=== PATIENT | female | born 1960 | race Caucasian/White ===

== ENCOUNTER 2019-10-07 09:35 | Emergency (ER) | payer SELFPAY ==
[2019-10-07] MEDS ORDERED: Sodium Chloride 0.9% 10 ML Syringe FLUSH PRN ×2 (09:52→10:03)
[2019-10-07] MEDS ORDERED: Ondansetron 4 MG/2 ML SDV IVPUSH ONE (09:52)
[2019-10-07] MEDS ORDERED: HYDROmorphone 1 MG/ML Syringe IVPUSH ONE (09:53)
[2019-10-07] MEDS ORDERED: Sodium Chloride 0.9% 1,000 ML IV SCH (10:00)
[2019-10-07] MEDS ORDERED: Iopamidol 612 MG/ML 100 ML Bottle IVPUSH ONE (10:03)
[2019-10-07] MEDS ORDERED: Diatrizoate Meglumine/Diatrizoate Sodium 37% 120 ML Bottle PO ONE (10:03)
[2019-10-07] MEDS ORDERED: Sodium Chloride 0.9% 1,000 ML IV ONE ×2 (10:25→11:35)
--- NOTE | 2019-10-07 10:35 | EDM.PDOC ---
ED HPI GENERAL MEDICAL PROBLEM - General Chief Complaint: Abdominal Pain Stated Complaint: [facility] Time Seen by Provider: 10/07/19 09:42 Source of Information: Reports: Patient History Limitations: Reports: No Limitations - History of Present Illness INITIAL COMMENTS - FREE TEXT/NARRATIVE: The patient presents by [facility] for abdominal pain, nausea or vomiting. This all started about a weeks ago and she has been getting worse. She had a bowel movement yesterday. She has a distended abdomen. She still has a gallbladder and appendix. She denies fever, chills, cough, congestion, runny nose, or chest pain. She does have some shortness of breath. She has no medical problems. She has not been able to keep anything down. The patient says she only drinks some times and not that much. She has no history of problems with her liver. EMS did a blood sugar and it was high around 280. Onset: Gradual Duration: Week(s): Location: Reports: Abdomen Quality: Reports: Sharp Severity: Moderate Improves with: Reports: None Worsens with: Reports: None Associated Symptoms: Reports: Nausea/Vomiting, Shortness of Breath. Denies: Chest Pain, Cough, Fever/Chills, Headaches Abdomen Pain Score (Numeric/FACES): 7 - Related Data Allergies Allergy/AdvReac Type Severity Reaction Status Date / Time No Known Allergies Allergy Verified 10/07/19 09:46 Home Meds: Home Meds . [No Known Home Meds] 10/07/19 [History] Past Medical History HEENT History: Reports: Impaired Vision Other HEENT History: wears glasses Social & Family History - Tobacco Use Smoking Status *Q: Former Smoker Used Tobacco, but Quit: Yes Month/Year Tobacco Last Used: 09/27/19 Tobacco Use Comment: quit since not feeling well - Caffeine Use Caffeine Use: Reports: None - Recreational Drug Use Recreational Drug Use: No ED ROS GENERAL - Review of Systems Review Of Systems: See Below Constitutional: Reports: No Symptoms HEENT: Reports: No Symptoms Respiratory: Reports: Shortness of Breath Cardiovascular: Reports: No Symptoms Endocrine: Reports: No Symptoms GI/Abdominal: Reports: Abdominal Pain, Nausea, Vomiting. Denies: Diarrhea : Reports: No Symptoms Musculoskeletal: Reports: No Symptoms ED EXAM, GI/ABD - Physical Exam Exam: See Below Exam Limited By: No Limitations General Appearance: Alert, No Apparent Distress Ears: Normal External Exam Nose: Normal Inspection Head: Atraumatic, Normocephalic Neck: Normal Inspection Respiratory/Chest: No Respiratory Distress, Lungs Clear, Normal Breath Sounds Cardiovascular: Regular Rate, Rhythm, No Edema, No Murmur GI/Abdominal Exam: Distended, Tender (Moderate generalized tenderness) Back Exam: Normal Inspection Course - Vital Signs Last Recorded V/S: Last Vital Signs Temp 96.9 F 10/07/19 09:37 Pulse 76 10/07/19 09:37 Resp 18 10/07/19 09:37 BP 129/76 10/07/19 09:37 Pulse Ox 98 10/07/19 09:37 - Orders/Labs/Meds Orders: Active Orders 24 hr Category Date Time Status EKG Documentation Completion [RC] ASDIRECTED Care 10/07/19 10:45 Active Peripheral IV Care [RC] . DIRECTED Care 10/07/19 09:52 Active RT Aerosol Therapy [RC] ASDIRECTED Care 10/07/19 10:48 Active CULTURE BLOOD [BC] Stat Lab 10/07/19 11:00 Received CULTURE BLOOD [BC] Stat Lab 10/07/19 11:15 Received LACTIC ACID [CHEM] Stat Lab 10/07/19 11:00 Received TROPONIN I [CHEM] Stat Lab 10/07/19 10:59 Ordered UA W/MICROSCOPIC [URIN] Stat Lab 10/07/19 09:52 Ordered Piperacillin/Tazobactam [Piperacil-Tazobact] 4.5 gm Med 10/07/19 11:27 Active Sodium Chloride 0.9% [Normal Saline] 100 ml IV ONETIME Sodium Chloride 0.9% [Normal Saline] 1,000 ml Med 10/07/19 10:00 Active IV ASDIRECTED Sodium Chloride 0.9% [Normal Saline] 1,000 ml Med 10/07/19 11:35 Active IV ONETIME Sodium Chloride 0.9% [Saline Flush] Med 10/07/19 09:52 Active 10 ml FLUSH ASDIRECTED PRN Sodium Chloride 0.9% [Saline Flush] Med 10/07/19 10:03 Active 10 ml FLUSH ONETIME PRN Blood Culture x2 Reflex Set [OM.PC] Stat Oth 10/07/19 10:36 Ordered ED Antiemetic Medication Reflex [OM.PC] Stat Oth 10/07/19 09:52 Ordered Peripheral IV Insertion Adult [OM.PC] Stat Oth 10/07/19 09:52 Ordered EKG 12 Lead [EK] Stat Ther 10/07/19 10:44 Ordered Medication Orders Sodium Chloride (Normal Saline) 1,000 mls @ 125 mls/hr IV ASDIRECTED TRAN Last Admin: 10/07/19 10:09 Dose: 125 mls/hr Piperacillin Sod/Tazobactam (Sod 4.5 gm/ Sodium Chloride) 100 mls @ 200 mls/hr IV ONETIME ONE Stop: 10/07/19 11:56 Last Admin: 10/07/19 11:36 Dose: 200 mls/hr Sodium Chloride (Normal Saline) 1,000 mls @ 1,000 mls/hr IV ONETIME ONE Stop: 10/07/19 12:34 Sodium Chloride (Saline Flush) 10 ml FLUSH ASDIRECTED PRN PRN Reason: Keep Vein Open Last Admin: 10/07/19 10:10 Dose: 10 ml Sodium Chloride (Saline Flush) 10 ml FLUSH ONETIME PRN PRN Reason: IV FLUSH Last Admin: 10/07/19 11:39 Dose: 10 ml Labs: Laboratory Tests 10/07/19 10/07/19 10/07/19 Range/Units 10:10 10:10 10:10 WBC 31.37 H (3.98-10.04) K/mm3 RBC 4.82 (3.98-5.22) M/mm3 Hgb 13.8 (11.2-15.7) gm/dl Hct 42.4 (34.1-44.9) % MCV 88.0 (79.4-94.8) fl MCH 28.6 (25.6-32.2) pg MCHC 32.5 (32.2-35.5) g/dl RDW Std Deviation 45.6 (36.4-46.3) fL Plt Count 250 (182-369) K/mm3 MPV 11.1 (9.4-12.3) fl Neut % (Auto) Cancelled Lymph % (Auto) Cancelled [place] % (Auto) Cancelled Eos % (Auto) Cancelled Baso % (Auto) Cancelled Neut # (Auto) Cancelled Lymph # (Auto) Cancelled [place] # (Auto) Cancelled Eos # (Auto) Cancelled Baso # (Auto) Cancelled Neutrophils % (Manual) 43 (40-60) % Band Neutrophils % 30 H (0-10) % Lymphocytes % (Manual) 20 (20-40) % Atypical Lymphs % 0 % Monocytes % (Manual) 4 (2-10) % Eosinophils % (Manual) 0 L (0.7-5.8) % Basophils % (Manual) 0 L (0.1-1.2) Metamyelocytes % 3 Manual Slide Review Cancelled Platelet Estimate Adequate RBC Morph Comment Normal VBG pH (7.30-7.40) Sodium 115 L* (136-145) mEq/L Potassium 6.9 H* (3.5-5.1) mEq/L Chloride 80 L (98-107) mEq/L Carbon Dioxide 9 L (21-32) mEq/L Anion Gap 32.9 H (5-15) BUN 25 H (7-18) mg/dL Creatinine 3.3 H (0.55-1.02) mg/dL Est Cr Clr Drug Dosing 15.65 mL/min Estimated GFR (MDRD) 14 (>60) mL/min BUN/Creatinine Ratio 7.6 L (14-18) Glucose 280 H (74-106) mg/dL Serum Osmolality 276 L (280-300) mosm/kg Calcium 9.0 (8.5-10.1) mg/dL Total Bilirubin 4.6 H (0.2-1.0) mg/dL AST 2994 H (15-37) U/L ALT 531 H (14-59) U/L Alkaline Phosphatase 559 H (46-116) U/L Total Protein 6.8 (6.4-8.2) g/dl Albumin 3.1 L (3.4-5.0) g/dl Globulin 3.7 gm/dL Albumin/Globulin Ratio 0.8 L (1-2) Lipase 417 H (73-393) U/L Ketones 0.17 (0.0-0.3) mM 05/20/20 Range/Units 10:14 WBC (3.98-10.04) K/mm3 RBC (3.98-5.22) M/mm3 Hgb (11.2-15.7) gm/dl Hct (34.1-44.9) % MCV (79.4-94.8) fl MCH (25.6-32.2) pg MCHC (32.2-35.5) g/dl RDW Std Deviation (36.4-46.3) fL Plt Count (182-369) K/mm3 MPV (9.4-12.3) fl Neut % (Auto) Lymph % (Auto) [place] % (Auto) Eos % (Auto) Baso % (Auto) Neut # (Auto) Lymph # (Auto) [place] # (Auto) Eos # (Auto) Baso # (Auto) Neutrophils % (Manual) (40-60) % Band Neutrophils % (0-10) % Lymphocytes % (Manual) (20-40) % Atypical Lymphs % % Monocytes % (Manual) (2-10) % Eosinophils % (Manual) (0.7-5.8) % Basophils % (Manual) (0.1-1.2) Metamyelocytes % Manual Slide Review Platelet Estimate RBC Morph Comment VBG pH 7.08 L (7.30-7.40) Sodium (136-145) mEq/L Potassium (3.5-5.1) mEq/L Chloride (98-107) mEq/L Carbon Dioxide (21-32) mEq/L Anion Gap (5-15) BUN (7-18) mg/dL Creatinine (0.55-1.02) mg/dL Est Cr Clr Drug Dosing mL/min Estimated GFR (MDRD) (>60) mL/min BUN/Creatinine Ratio (14-18) Glucose (74-106) mg/dL Serum Osmolality (280-300) mosm/kg Calcium (8.5-10.1) mg/dL Total Bilirubin (0.2-1.0) mg/dL AST (15-37) U/L ALT (14-59) U/L Alkaline Phosphatase (46-116) U/L Total Protein (6.4-8.2) g/dl Albumin (3.4-5.0) g/dl Globulin gm/dL Albumin/Globulin Ratio (1-2) Lipase (73-393) U/L Ketones (0.0-0.3) mM Meds: Medications Generic Name Dose Route Start Last Admin Trade Name Freq PRN Reason Stop Dose Admin Sodium Chloride 1,000 mls @ 125 mls/hr 10/07/19 10:00 10/07/19 10:09 Normal Saline IV 125 mls/hr ASDIRECTED TRAN Administration Piperacillin Sod/Tazobactam 100 mls @ 200 mls/hr 10/07/19 11:27 10/07/19 11: 36 Sod 4.5 gm/ Sodium Chloride IV 10/07/19 11:56 200 mls/hr ONETIME ONE Administration Sodium Chloride 1,000 mls @ 1,000 mls/hr 10/07/19 11:35 Normal Saline IV 10/07/19 12:34 ONETIME ONE Sodium Chloride 10 ml 10/07/19 09:52 10/07/19 10:10 Saline Flush FLUSH 10 ml ASDIRECTED PRN Administration Keep Vein Open Sodium Chloride 10 ml 10/07/19 10:03 10/07/19 11:39 Saline Flush FLUSH 10 ml ONETIME PRN Administration IV FLUSH Discontinued Medications Generic Name Dose Route Start Last Admin Trade Name Freq PRN Reason Stop Dose Admin Albuterol 2.5 mg 10/07/19 10:48 10/07/19 10:57 Proventil Neb Soln NEB 10/07/19 10:49 2.5 mg ONETIME ONE Administration Calcium Gluconate 1 gm 10/07/19 10:47 10/07/19 11:03 Calcium Gluconate IVPUSH 10/07/19 10:48 1 gm ONETIME ONE Administration Dextrose/Water 50 ml 10/07/19 10:45 10/07/19 11:02 Dextrose 50% In Water IVPUSH 10/07/19 10:46 50 ml ONETIME ONE Administration Diatrizoate Meglum/Diatrizoate Sod 120 ml 10/07/19 10:03 10/07/19 10:58 Gastrografin 37% PO 10/07/19 10:04 45 ml ONETIME ONE Administration Hydromorphone HCl 1 mg 10/07/19 09:53 10/07/19 10:07 Dilaudid IVPUSH 10/07/19 09:54 1 mg ONETIME ONE Administration Sodium Chloride 1,000 mls @ 1,000 mls/hr 10/07/19 10:25 Normal Saline IV 10/07/19 11:24 ONETIME ONE Insulin Human Regular 10 unit 10/07/19 10:46 10/07/19 11:02 Humulin R IV 10/07/19 10:47 10 unit ONETIME ONE Administration Iopamidol 100 ml 10/07/19 10:03 10/07/19 10:58 Isovue-300 (61%) IVPUSH 10/07/19 10:04 30 ml ONETIME ONE Administration Ondansetron HCl 4 mg 10/07/19 09:52 10/07/19 10:05 Zofran IVPUSH 10/07/19 09:53 4 mg ONETIME ONE Administration Sodium Bicarbonate 50 meq 10/07/19 10:47 10/07/19 11:30 Sodium Bicarbonate 8.4% IVPUSH 10/07/19 10:48 Not Given ONETIME ONE Sodium Bicarbonate 50 meq 10/07/19 11:30 10/07/19 11:32 Sodium Bicarbonate 8.4% IVPUSH 10/07/19 11:31 50 meq ONETIME ONE Administration Sodium Polystyrene Sulfonate 45 gm 10/07/19 10:48 10/07/19 11:19 Kayexalate PO 10/07/19 10:49 45 gm NOW ONE Administration - Re-Assessments/Exams Free Text/Narrative Re-Assessment/Exam: 10/07/19 10:40 I ordered an IV NS 1L bolus, zofran 4mg IV, dilaudid 1mg IV, labs, UA and a CT of her abdomen and pelvis. Her oxygen saturations went down so she was put on oxygen. My nurse called me into the room because the patient is having some weakness to her right arm. She has mild to moderate weakness to the right arm. I ordered an immediate CT of her head and we will do the CT of her abdomen and pelvis with IV contrast only. 10/07/19 11:[address] shows incidental findings. Nothing acute is identified on noncontrast head CT exam. She feels better and can move her right arm just fine. Lab called and her K was elevated at 6.9. I ordered an EKG that shows a NSR with just slight elevated in the inferior leads but there is a wandering baseline so hard to know for sure. I ordered D50 insulin R 10 units, albuterol, calcium gluconate, sodium bicarb and kayexilate. Her anion gap is elevated at 32.9. Her creatinine is elevated at 3.3. Her GFR is low at 14. Her glucose is elevated at 280. Her total bili was elevated at 4.6. Her AST is elevated at 2, 994. Her ALT is elevated at 531. Her lipase is elevated at 417. Her lactic acid is 10.8. She is septic. I have ordered another liter of fluid to a total of 2,040mls. I have also ordered blood cultures and zosyn. Her BP did go down to 76 systolic. That did come up to 99 systolic after some fluids. She is alert and talking to me. I feel she needs further specialized care in [place]. She did want [facility] and I called them and they were full in the ICU. I called [facility] in [place] and talked with Dr Crowe in the ER and they accepted the patient. We will be flying her to [place]. Departure - Departure Time of Disposition: 12:00 Disposition: DC/Tfer to [facility] 02 Condition: Serious Clinical Impression: Hyponatremia, Hyperkalemia Sepsis Qualifiers: Sepsis type: sepsis due to unspecified organism Sepsis acute organ dysfunction status: with acute organ dysfunction Severe sepsis acute organ dysfunction type : acute renal failure Acute renal failure type: unspecified Severe sepsis shock status: with septic shock Qualified Code(s): A41.9 - Sepsis, unspecified organism; R65.21 - Severe sepsis with septic shock; N17.9 - Acute kidney failure , unspecified Renal failure Qualifiers: Renal failure chronicity: acute Acute renal failure type: unspecified Qualified Code(s): N17.9 - Acute kidney failure, unspecified Hypotension Qualifiers: Hypotension type: other hypotension type Qualified Code(s): I95.89 - Other hypotension - Discharge Information Referrals: PCP,None [Primary Care Provider] - Forms: ED Department Discharge Sepsis Event Note - Evaluation Sepsis Screening Result: No Definite Risk - Focused Exam Vital Signs: Vital Signs Temp Pulse Resp BP Pulse Ox 10/07/19 09:37 96.9 F 76 18 129/76 98 Date Exam was Performed: 10/07/19 Time Exam was Performed: 11:40 - My Orders Last 24 Hours: My Active Orders 10/07/19 09:52 Peripheral IV Care [RC] . DIRECTED UA W/MICROSCOPIC [URIN] Stat Sodium Chloride 0.9% [Saline Flush] 10 ml FLUSH ASDIRECTED PRN ED Antiemetic Medication Reflex [OM.PC] Stat Peripheral IV Insertion Adult [OM.PC] Stat 10/07/19 10:00 Sodium Chloride 0.9% [Normal Saline] 1,000 ml IV ASDIRECTED 10/07/19 10:03 Sodium Chloride 0.9% [Saline Flush] 10 ml FLUSH ONETIME PRN 10/07/19 10:36 Blood Culture x2 Reflex Set [OM.PC] Stat 10/07/19 10:44 EKG 12 Lead [EK] Stat 10/07/19 10:45 EKG Documentation Completion [RC] ASDIRECTED 10/07/19 10:48 RT Aerosol Therapy [RC] ASDIRECTED 10/07/19 10:59 TROPONIN I [CHEM] Stat 10/07/19 11:00 CULTURE BLOOD [BC] Stat LACTIC ACID [CHEM] Stat 10/07/19 11:15 CULTURE BLOOD [BC] Stat 10/07/19 11:27 Piperacillin/Tazobactam [Piperacil-Tazobact] 4.5 gm Sodium Chloride 0.9% [ Normal Saline] 100 ml IV ONETIME 10/07/19 11:35 Sodium Chloride 0.9% [Normal Saline] 1,000 ml IV ONETIME - Assessment/Plan Last 24 Hours: My Active Orders 10/07/19 09:52 Peripheral IV Care [RC] . DIRECTED UA W/MICROSCOPIC [URIN] Stat Sodium Chloride 0.9% [Saline Flush] 10 ml FLUSH ASDIRECTED PRN ED Antiemetic Medication Reflex [OM.PC] Stat Peripheral IV Insertion Adult [OM.PC] Stat 10/07/19 10:00 Sodium Chloride 0.9% [Normal Saline] 1,000 ml IV ASDIRECTED 10/07/19 10:03 Sodium Chloride 0.9% [Saline Flush] 10 ml FLUSH ONETIME PRN 10/07/19 10:36 Blood Culture x2 Reflex Set [OM.PC] Stat 10/07/19 10:44 EKG 12 Lead [EK] Stat 10/07/19 10:45 EKG Documentation Completion [RC] ASDIRECTED 10/07/19 10:48 RT Aerosol Therapy [RC] ASDIRECTED 10/07/19 10:59 TROPONIN I [CHEM] Stat 10/07/19 11:00 CULTURE BLOOD [BC] Stat LACTIC ACID [CHEM] Stat 10/07/19 11:15 CULTURE BLOOD [BC] Stat 10/07/19 11:27 Piperacillin/Tazobactam [Piperacil-Tazobact] 4.5 gm Sodium Chloride 0.9% [ Normal Saline] 100 ml IV ONETIME 10/07/19 11:35 Sodium Chloride 0.9% [Normal Saline] 1,000 ml IV ONETIME
[2019-10-07] MEDS ORDERED: 50% Dextrose in Water 50 ML Syringe IVPUSH ONE (10:45)
[2019-10-07] MEDS ORDERED: Insulin Regular, Human 100 Units/ML 3 ML Vial IV ONE (10:46)
[2019-10-07] MEDS ORDERED: Calcium Gluconate 10% 1 GM/10 ML SDV IVPUSH ONE (10:47)
[2019-10-07] MEDS ORDERED: Sodium Bicarbonate 8.4% 50 MEQ/50 ML Syringe IVPUSH ONE (10:47)
[2019-10-07] MEDS ORDERED: Sodium Polystyrene Sulfonate 15 GM/60 ML Susp 60 ML Bot PO ONE (10:48)
[2019-10-07] MEDS ORDERED: Albuterol 0.083% 2.5 MG/3 ML Neb Soln NEB ONE (10:48)
[2019-10-07] MEDS ORDERED: Piperacillin/Tazobactam 4.5 GM in Sodium Chloride 0.9% 100 ML IV ONE (11:27)
[2019-10-07] MEDS ORDERED: Sodium Bicarbonate 8.4% 50 MEQ/50 ML SDV IVPUSH ONE (11:30)
--- NOTE | 2019-10-07 11:32 | CT ---
CT abdomen and pelvis Technique: Multiple axial sections were obtained from above the dome of the diaphragm inferiorly through the pubic symphysis. Intravenous contrast partially given. Small amount of oral contrast is also noted. Findings: Liver is markedly enlarged. Irregular densities are noted throughout the liver. Uncertain how much of this represents fatty infiltration versus other liver disease. Liver biopsy would be needed to further define if etiology not known clinically. Visualized lung bases shows mild interstitial change which is likely chronic. Small nonspecific nodule noted within the lingula measuring 5 mm. Partially visualized adenopathy noted within the right hilum and right pretracheal region. Small hiatal hernia seen with gastroesophageal reflux of contrast. Left adrenal gland shows a nodule measuring 2.7 cm in size. This nodule is nonspecific at this time. Right adrenal gland is unremarkable. Kidneys show symmetric contrast enhancement without hydronephrosis or mass aorta shows no aneurysm. No retroperitoneal adenopathy is seen. Diffuse atherosclerotic calcification is noted. Pancreas shows no discrete abnormality. Ascites is seen within the right paracolic gutter and within the pelvis. Lesser ascites seen within the left abdomen. Thickening appears to be present within the greater omentum and difficult to exclude omental metastasis. There is free air being seen within the abdomen which is uncertain as to etiology of this finding. Bone window settings were reviewed which shows mild scattered degenerative change within the spine with mild scoliosis. Impression: 1. Markedly enlarged liver which is diffusely abnormal in its enhancement pattern. Uncertain if this represents prominent fatty infiltration or represents other disease such as metastasis. If etiology for these liver findings are not known clinically, biopsy would be needed to further evaluate. 2. Ascites. 3. Mild amount of free air within the abdomen of uncertain etiology. 4. Thickening of the greater omentum and omental metastasis cannot be excluded. 5. Nonspecific nodule within the left adrenal gland measuring 2.7 cm. 6. Partially visualized adenopathy within the mediastinum. Diagnostic code #9 This report was dictated in MDT
--- NOTE | 2019-10-07 11:32 | CT ---
Head CT Technique: Multiple axial sections through the brain were obtained. Intravenous contrast was not utilized. Comparison: No prior intracranial imaging is available. Findings: Ventricles along with basal cisterns and sulci over the convexities are within normal limits for the patient's age. No abnormal parenchymal densities are seen. No evidence of intracranial hemorrhage. No midline shift or mass-effect is seen. Minimal descent of the cerebellar tonsils below the foramen magnum is felt to be present. No cerebellar beaking is seen and this is felt to be a normal variant. Bone window settings were reviewed. No acute findings within the mastoid or paranasal sinuses. No acute calvarial abnormality is appreciated. Impression: 1. Findings as noted above which is believed to be incidental. 2. Nothing acute is identified on noncontrast head CT exam. Diagnostic code #2 This report was dictated in MDT
[2019-10-07] MEDS ORDERED: Lactated Ringers 500 ML IV ONE (12:31)
== END 2019-10-07 12:51 ==
LOC: JD.ED 09:35
DX: A41.9 Sepsis, unspecified organism (principal); R65.21 Severe sepsis with septic shock; N17.9 Acute kidney failure, unspecified; I95.89 Other hypotension; E87.1 Hypo-osmolality and hyponatremia; E87.5 Hyperkalemia; Z87.891 Personal history of nicotine dependence
CPT/HCPCS: 36415; 70450; 74177; 80053; 82009; 82800; 83605; 83690; 83930; 84484; 85007; 85027; 87040; 93005; 94640; 96361; 96365; 96375; 99285; A9270; J0610; J1170; J1815; J2405; J2543; J7030; J7050; J7120; Q9963; Q9967; 93010; 99284